=== PATIENT | male | born 1995 | race Two or more races ===

== ENCOUNTER 2021-02-05 17:54 | Inpatient (IN) | payer MEDICAID ==
[~2021-02-05] VITALS: Ht 170.2 cm; Wt 95.4 kg
[2021-02-05] MEDS ORDERED: INFLUENZA VIRUS VACCINE QVS 2021-22 (6MO+)/PF 60 MCG/0.5 ML SYRINGE IM. ONE (20:45)
[2021-02-06 16:21] VITALS: BP 140/83
[2021-02-06] MEDS ORDERED: ONDANSETRON HCL 4 MG TABLET PO PRN (21:30)
[2021-02-06] MEDS ORDERED: CloNIDine HCL 0.1 MG TABLET PO PRN (21:30)
[2021-02-06] MEDS ORDERED: LOPERAMIDE HCL 2 MG CAPSULE PO PRN (21:30)
[2021-02-06] MEDS ORDERED: DOCUSATE SODIUM 100 MG CAPSULE PO PRN (21:30)
[2021-02-06] MEDS ORDERED: IBUPROFEN 600 MG TABLET PO PRN (21:30)
[2021-02-06] MEDS ORDERED: ALBUTEROL SULFATE HFA 90 MCG/PUFF 8 GM INHALER IH PRN (21:30)
[2021-02-06] MEDS ORDERED: OMEPRAZOLE 20 MG CAPSULE PO PRN (21:30)
[2021-02-06] MEDS ORDERED: MAG HYDROX/AL HYDROX/SIMETH ES 30 ML SUSPENSION UDCUP PO PRN (21:30)
[2021-02-06] MEDS ORDERED: PETROLATUM,WHITE 28 GM JELLY TP PRN (21:30)
[2021-02-06] MEDS ORDERED: ACETAMINOPHEN 325 MG TABLET PO PRN (21:30)
[2021-02-06] MEDS ORDERED: BENZOCAINE/MENTHOL LOZENGE PO PRN (21:30)
[2021-02-06] MEDS ORDERED: MAGNESIUM HYDROXIDE SUSPENSION 30 ML UDCUP PO PRN (21:30)
[2021-02-06] MEDS ORDERED: BACITRACIN 28 GM OINTMENT TP PRN (21:30)
[2021-02-07 07:01] VITALS: BP 134/78
[2021-02-07 08:00] LABS: BASOPHILS % (AUTO) 0.7 % (0.0-2.0); EOSINOPHILS % (AUTO) 1.4 % (1.0-6.0); HEMATOCRIT 40.8 % (41-53); HEMOGLOBIN 13.5 g/dL (13.5-17.5); LYMPHOCYTES # (AUTO) 3.1 K/uL (1.0-4.8); LYMPHOCYTES % (AUTO) 49.2 % (22.0-44.0); MEAN CORPUSCULAR HEMOGLOBIN 31.9 pg (26.0-34.0); MEAN CORPUSCULAR HGB CONC 33.1 G/dL (31.0-37.0); MEAN CORPUSCULAR VOLUME 96 fL (80-100); MONOCYTES # (AUTO) 0.5 K/uL (0.1-1.0); MONOCYTES % (AUTO) 7.5 % (2.0-9.0); NEUTROPHILS # (AUTO) 2.6 K/uL (1.8-7.7); NEUTROPHILS % (AUTO) 41.2 % (40.0-70.0); PLATELET COUNT (AUTO) 199 K/uL (150-450); RED BLOOD CELL COUNT(AUTO) 4.24 MIL/uL (4.50-5.90); RED CELL DISTRIBUTION WIDTH 14.2 % (11.5-14.5)
[2021-02-07 08:28] LABS: ALANINE AMINOTRANSFERASE 33 U/L (12-78); ALBUMIN 3.4 g/dL (3.4-5.0); ALKALINE PHOSPHATASE 29 U/L (46-116); ANION GAP 6 mmol/L (8-16); ASPARTATE AMINOTRANSFERASE 13 U/L (15-37); BILIRUBIN,TOTAL 0.4 mg/dL (0.1-1.0); CALCIUM, TOTAL 8.3 mg/dL (8.8-10.5); CARBON DIOXIDE 30 mmol/L (22-29); CHLORIDE 108 mmol/L (98-107); CHOL/HDL RATIO 3.2 (4.2-7.3); CHOLESTEROL 144 mg/dL (131-200); GLOMERULAR FILTR. RATE CALC > 60 mL/min (>60); GLUCOSE,RANDOM 87 mg/dL (70-110); HDL CHOLESTEROL 45 mg/dL (40-60); LDL CHOL (CALC.) 79 mg/dL (0-130); POTASSIUM 4.2 mmol/L (3.5-5.1); SODIUM SERUM 144 mmol/L (136-145); THYROID STIMULATING HORMONE 1.54 uIU/mL (0.36-3.74); TOTAL PROTEIN, SERUM 6.3 g/dL (6.4-8.2); TRIGLYCERIDES 101 mg/dL (15-150); UREA NITROGEN, BLOOD 11 mg/dL (7-18)
[2021-02-07 08:58] VITALS: BP 109/59
[2021-02-07 16:14] VITALS: BP 122/70
[2021-02-08 05:54] VITALS: BP 109/70
[2021-02-08 08:28] VITALS: BP 121/83
== END 2021-02-08 15:10 | disposition home or self-care (01) | DRG 754 ==
LOC: B3A 02-06 08:03
PROVIDERS: ADMIT Psychiatry & Neurology Psychiatry; ATTEND Psychiatry & Neurology Psychiatry
DX: F32.9 Major depressive disorder, single episode, unspecified (principal); F22 Delusional disorders; F12.90 Cannabis use, unspecified, uncomplicated; F41.9 Anxiety disorder, unspecified; G47.00 Insomnia, unspecified; K59.00 Constipation, unspecified; Z79.899 Other long term (current) drug therapy
CPT/HCPCS: 80053; 80061; 83735; 84100; 84443; 85025

== ENCOUNTER 2023-12-20 18:49 | Inpatient (IN) | payer MEDICAID ==
[~2023-12-20] VITALS: Ht 170.2 cm; Wt 104.3 kg
[2023-12-20] MEDS ORDERED: MAG HYDROX/ALUMINUM HYD/SIMETH ES 30 ML SUSPENSION UDCUP PO PRN (21:30)
[2023-12-20] MEDS ORDERED: MAGNESIUM HYDROXIDE SUSPENSION 30 ML UDCUP PO PRN (21:30)
[2023-12-20] MEDS ORDERED: ACETAMINOPHEN 325 MG TABLET PO PRN (21:30)
[2023-12-20] MEDS ORDERED: HydrOXYzine PAMOATE 50 MG CAPSULE PO PRN (21:30)
[2023-12-20] MEDS ORDERED: PROMETHAZINE HCL 25 MG TABLET PO PRN (21:30)
[2023-12-20] MEDS ORDERED: TUBERCULIN, PURIFIED PROTEIN DERIVATIVE 5 TU/0.1 ML SYRINGE ID ONE (21:30)
[2023-12-20] MEDS ORDERED: GuaiFENesin/D-METHORPHAN [SUGAR-FREE] 200-20MG/10 ML SYRUP UDCUP PO PRN (21:30)
[2023-12-20] MEDS ORDERED: LOPERAMIDE HCL 2 MG CAPSULE PO PRN (21:30)
[2023-12-20] MEDS ORDERED: OLANZapine 5 MG RAPDIS TABLET PO PRN (21:30)
[2023-12-20] MEDS: DiphenhydrAMINE HCL 50 MG/ML VIAL IM ONE (22:15)
[2023-12-20] MEDS: HALOPERIDOL LACTATE 5 MG/ML VIAL IM ONE (22:15)
[2023-12-20] MEDS: LORazepam 2 MG/ML VIAL IM ONE (22:15)
[2023-12-20] MEDS: LORazepam 2 MG TABLET PO PRN (22:44)
[2023-12-20] MEDS: ZOLPIDEM TARTRATE 10 MG TABLET PO PRN (22:44)
[2023-12-21 00:25] VITALS: BP 142/78; PULSE 81; RESP 18; TEMP 97.2; O2SAT 99
[2023-12-21] MEDS: THIAMINE 100 MG TABLET PO SCH (09:00)
[2023-12-21] MEDS: FOLIC ACID 1 MG TABLET PO SCH (09:01)
[2023-12-21] MEDS: MULTIVITAMINS WITH MINERALS, THERAPEUTIC TABLET PO SCH (09:01)
[2023-12-21] MEDS: DIVALPROEX SODIUM 500 MG ER TABLET PO SCH (09:01)
[2023-12-21 09:09] LABS: HEMOGLOBIN A1C 5.3 % (3.8-5.6)
[2023-12-21 09:19] LABS: ALANINE AMINOTRANSFERASE 34 U/L (12-78); ALBUMIN 3.4 g/dL (3.4-5.0); ALKALINE PHOSPHATASE 26 U/L (46-116); ANION GAP 11 mmol/L (8-16); ASPARTATE AMINOTRANSFERASE 17 U/L (15-37); BILIRUBIN,TOTAL 1.2 mg/dL (0.1-1.0); CALCIUM, TOTAL 8.3 mg/dL (8.8-10.5); CARBON DIOXIDE 27 mmol/L (22-29); CHLORIDE 101 mmol/L (98-107); CHOL/HDL RATIO 3.7 (4.2-7.3); CHOLESTEROL 179 mg/dL (131-200); CREATININE 1.06 mg/dL (0.60-1.30); GLOMERULAR FILTR. RATE CALC > 60 mL/min (>60); GLUCOSE,RANDOM 107 mg/dL (70-110); HDL CHOLESTEROL 49 mg/dL (40-60); LDL CHOL (CALC.) 110 mg/dL (0-130); POTASSIUM 3.3 mmol/L (3.5-5.1); SODIUM SERUM 139 mmol/L (136-145); THYROID STIMULATING HORMONE 1.09 uIU/mL (0.36-3.74); TRIGLYCERIDES 99 mg/dL (15-150); UREA NITROGEN, BLOOD 12 mg/dL (7-18)
[2023-12-21 09:42] LABS: BASOPHILS % (AUTO) 0.4 % (0.0-2.0); EOSINOPHILS % (AUTO) 1.7 % (1.0-6.0); HEMOGLOBIN 13.2 g/dL (13.5-17.5); LYMPHOCYTES # (AUTO) 2.9 K/uL (1.0-4.8); LYMPHOCYTES % (AUTO) 36.9 % (22.0-44.0); MEAN CORPUSCULAR HEMOGLOBIN 31.4 pg (26.0-34.0); MEAN CORPUSCULAR HGB CONC 32.3 G/dL (31.0-37.0); MEAN CORPUSCULAR VOLUME 97 fL (80-100); MONOCYTES # (AUTO) 0.7 K/uL (0.1-1.0); MONOCYTES % (AUTO) 8.7 % (2.0-9.0); NEUTROPHILS # (AUTO) 4.1 K/uL (1.8-7.7); NEUTROPHILS % (AUTO) 52.3 % (40.0-70.0); PLATELET COUNT (AUTO) 242 K/uL (150-450); RED BLOOD CELL COUNT(AUTO) 4.22 MIL/uL (4.50-5.90); RED CELL DISTRIBUTION WIDTH 14.3 % (11.5-14.5); WHITE BLOOD COUNT (AUTO) 7.8 K/uL (4.5-11.0)
[2023-12-21 10:19] VITALS: BP 116/65; PULSE 89; RESP 17; TEMP 97.5; O2SAT 97
[2023-12-21] MEDS: POTASSIUM CHLORIDE 20 MEQ ER TABLET PO ONE (13:08)
[2023-12-21] MEDS ORDERED: LURASIDONE HCL 20 MG TABLET PO PRN (17:15)
[2023-12-21] MEDS: MELATONIN 5 MG TABLET PO SCH (20:14)
[2023-12-21 20:16] VITALS: BP 94/60; PULSE 77; RESP 18; TEMP 97.7; O2SAT 99
[2023-12-21] MEDS ORDERED: OLANZapine 5 MG RAPDIS TABLET PO SCH (21:00)
[2023-12-22] MEDS: LURASIDONE HCL 20 MG TABLET PO SCH (06:49)
[2023-12-22 08:31] VITALS: BP 116/52; PULSE 97; RESP 17; TEMP 97.6; O2SAT 98
[2023-12-22 08:37] LABS: ANION GAP 7 mmol/L (8-16); CALCIUM, TOTAL 8.2 mg/dL (8.8-10.5); CARBON DIOXIDE 28 mmol/L (22-29); CHLORIDE 103 mmol/L (98-107); GLOMERULAR FILTR. RATE CALC > 60 mL/min (>60); GLUCOSE,RANDOM 90 mg/dL (70-110); POTASSIUM 3.9 mmol/L (3.5-5.1); SODIUM SERUM 138 mmol/L (136-145); UREA NITROGEN, BLOOD 9 mg/dL (7-18)
[2023-12-22] MEDS: ATOMOXETINE HCL 10 MG CAPSULE PO SCH (08:39)
[2023-12-22] MEDS: BuPROPion HCL 75 MG TABLET PO SCH (08:40)
[2023-12-22] MEDS ORDERED: BUPR-344 PO (14:19)
[2023-12-22] MEDS ORDERED: NALT50TA6 PO (14:19)
[2023-12-22] MEDS ORDERED: LURA20TA PO (14:19)
[2023-12-22] MEDS ORDERED: MELA5TAB40 PO (14:19)
[2023-12-22] MEDS ORDERED: ATOM10CA4 PO (14:19)
[2023-12-22 22:37] VITALS: BP 132/79; PULSE 82; RESP 18; TEMP 98
[2023-12-23 07:07] LABS: HEPATITIS A ANTIBODY IGM Negative (Negative); HEPATITIS B CORE IGM Negative (Negative); HEPATITIS C AB (EIA) Non Reactive (Non Reactive)
[2023-12-23 09:22] VITALS: BP 106/50; PULSE 88; RESP 16; TEMP 98.2; O2SAT 99
== END 2023-12-23 12:03 | disposition home or self-care (01) | DRG 750 ==
LOC: B3A 20:19
PROVIDERS: ADMIT Psychiatry & Neurology Psychiatry; ATTEND Psychiatry & Neurology Psychiatry
PROC: GZHZZZZ Group Psychotherapy (ICD-10-PCS; principal; 2023-12-20)
PROC: GZ51ZZZ Individual Psychotherapy, Behavioral (ICD-10-PCS; 2023-12-20)
PROC: GZ58ZZZ Individual Psychotherapy, Cognitive-Behavioral (ICD-10-PCS; 2023-12-20)
PROC: GZ56ZZZ Individual Psychotherapy, Supportive (ICD-10-PCS; 2023-12-21)
DX: F25.9 Schizoaffective disorder, unspecified (principal); D64.9 Anemia, unspecified; F41.9 Anxiety disorder, unspecified; E87.6 Hypokalemia; G47.00 Insomnia, unspecified; K59.00 Constipation, unspecified; F17.210 Nicotine dependence, cigarettes, uncomplicated; F90.9 Attention-deficit hyperactivity disorder, unspecified type; F15.10 Other stimulant abuse, uncomplicated; F32.A Depression, unspecified
CPT/HCPCS: 80048; 80053; 80061; 80074; 83036; 84439; 84443; 85025; 86592; 87081; J1200; J1630; J2060